=== PATIENT | male | born 1980 | race Caucasian/White ===

== ENCOUNTER 2018-09-10 14:13 | Emergency (ER) | payer SELFPAY ==
[2018-09-10] MEDS ORDERED: BUPIVACAINE HCL 0.5% (5MG/ML) PF 10ML VIAL IJ ONE (14:31)
[2018-09-10] MEDS ORDERED: Lidocaine 1% 5ml 10 MG/ML VIAL IJ ONE (14:31)
[2018-09-10 14:34] VITALS: BP 139/98
--- NOTE | 2018-09-10 14:42 | ED Physician Documentation ---
Sore Throat/Dental Pain - HISTORIAN Historian: patient - HPI Stated Complaint: dental pain Chief Complaint: Dental Pain Onset: minutes Further Comments: yes (37 year old male patient presents with dental pain 04/30, started this afternoon.) - ROS CONST: no problems CVS/RESP: none GI/: denies: nausea, vomiting MS/SKIN/LYMPH: denies: muscle aches, rash, leg swelling, ankle swelling, other NEURO/PSYCH: none - PAST HX Past History: none Allergies/Adverse Reactions: Allergies Allergy/AdvReac Type Severity Reaction Status Date / Time No Known Allergies Allergy Verified 09/10/18 14:40 Home Medications: Ambulatory Orders Medication Instructions Recorded Amoxicillin [Trimox] 500 mg PO TID #30 capsule 09/10/18 - SOCIAL HX Smoking History: cigarettes - FAMILY HX Family History: No - VITAL SIGNS Vital Signs: Vital Signs Temp Pulse Resp BP Pulse Ox 96.8 F L 71 16 139/98 96 09/10/18 14:31 09/10/18 14:31 09/10/18 14:31 09/10/18 14:31 09/10/18 14:31 - REVIEWED ASSESSMENTS Nursing Assessment Reviewed: Yes Vitals Reviewed: Yes Progress - Progress Progress: Dental block to right buccal space. Medicated for pain with Nubain while in ER. Educated on safe ibuprofen dosing. Patient took 6 tabs [employer]. ED Results Lab/Radiology - Orders Orders: ED Orders Category Date Time Status Bupivacaine HCl 0.5% Pf 10Ml [Marcaine 0.5%] Med 09/10/18 14:31 Discontinued 5 mg IJ NOW ONE Lidocaine 1% 5ml(IM or SUTURE) [Xylocaine] Med 09/10/18 14:31 Discontinued 50 mg IJ NOW ONE Dental Pain Physical Exam - EXAM General Appearance: no acute distress, alert Head/Neck: head nml inspection, trachea midline, no lymphadenopathy, thyroid nml, neck nml inspection Mouth/Throat: lips nml, gums nml, pharynx nml, voice nml, no drooling, no air way problems, no thrush, membranes nml, widespread dental decay, other (#2 and 3 with caries, fracture, edema around gumline; multiple missing teeth. ) Respiratory: no resp. distress, breath sounds nml CVS: reg. rate & rhythm, heart sounds nml Abdomen: soft, no organomegaly, normal bowel sounds, no abdominal bruit, no distension Skin: normal color, warm/dry, NR, INT, PAL, DR Neuro/Psych: none Discharge Clincal Impression: Pain due to dental caries Prescriptions: Amoxicillin [Trimox] 500 mg PO TID #30 capsule Referrals: Primary Doctor,No [Primary Care Provider] - 2 Days Additional Instructions: Dental Pain Ibuprofen 800mg every 8 hours x 3 days Tylenol 650-1000mg every 4 hours as needed for pain, limit your dose to 4G in 24 hours. Over the counter DenTek - follow package directions. 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 Condition: Stable Disposition: 01 HOME, SELF-CARE Decision to Admit: NO Decision Time: 14:41
[2018-09-10] MEDS ORDERED: NALBUPHINE HCL 10 MG/1 ML IM ONE (14:47)
== END 2018-09-10 15:08 | disposition home or self-care (01) ==
LOC: ED 14:13
DX: K02.9 Dental caries, unspecified (principal)
CPT/HCPCS: 64400; 96372; 99283; J2300; J3490